=== PATIENT | female | born 1990 | race Caucasian/White ===

== ENCOUNTER 2025-03-31 15:04 | Emergency (ER) | payer OTHER, SELFPAY ==
[2025-03-31 15:06] VITALS: BP 147/76
[2025-03-31 15:20] LABS: Hematocrit 41.2 % (37.0-47.0); Hemoglobin 14.4 g/dL (12.0-16.0); Mean Corp Hgb Conc. 35.0 g/dL (33.0-37.0); Mean Corpuscular Volume 83.4 fL (81.0-99.0); Nucleated Red Blood Cells % 0 %; Platelet Count 201 10^3/uL (130-400); Red Cell Dist. Width 12.6 % (11.5-14.5)
[2025-03-31 15:46] LABS: ALT (SGPT) 29 U/L (0-35); AST (SGOT) 23 U/L (14-36); Albumin 4.4 g/dl (3.5-5.0); Alkaline Phosphatase 69 U/L (38-126); Blood Urea Nitrogen 12 mg/dl (7-17); Calcium 9.6 mg/dl (8.4-10.2); Carbon Dioxide 20 mmol/L (22-30); Chloride 108 mmol/L (98-107); Glucose 125 mg/dl (70-99); Lipase 129 U/L (23-300); Potassium 4.1 mmol/L (3.5-5.1); Sodium 137 mmol/L (135-145); Total Protein 6.9 g/dl (6.3-8.2); eGFR > 60.00
[2025-03-31 15:47] LABS: HCG, Serum Qualitative Screen Negative
--- NOTE | 2025-03-31 16:14 | EDRN ---
Brando VASQUEZ in room w/ pt at this time.
[2025-03-31 16:20] VITALS: BP 115/71; BMI 23.4
[2025-03-31] MEDS: NSS 1000 IV (16:24)
[2025-03-31] MEDS: ZOFRAN 4 MG IV (16:29)
[2025-03-31] MEDS: TORADOL 15 MG IV (16:29)
--- NOTE | 2025-03-31 16:47 | EDRN ---
Pt has urine cup ready for after US.
[2025-03-31 17:00] VITALS: BP 120/89
--- NOTE | 2025-03-31 17:35 | ED.GENMED ---
History of Present Illness
<Heidi Viera PA-C - Last Filed: 04/01/25 11:11>
General
Chief Complaint: Abdominal Pain
Source: patient
Exam Limitations: none
Time Seen by Provider: 03/31/25 16:04
Nursing documentation reviewed up to this point in time: agreed with
History of Present Illness
History of Present Illness:
Patient is a 34-year-old female who presents to the emergency department with acute onset right sided abdominal pain. She states symptoms started around 1/:30 PM and describes a sharp pain through her entire right side of her abdomen radiating
around to her right back. She reports associated nausea however has not had any episodes of vomiting. No fever or chills. No dysuria or obvious hematuria. No diarrhea or constipation. No clear postprandial nature to pain. No associated chest
pain or shortness of breath.
Patient was feeling well this morning and asymptomatic prior to onset of pain.
No history of abdominal surgeries.
Past History
<Heidi Viera PA-C - Last Filed: 04/01/25 11:11>
Past History
ED Past Medical History: None
Social History
Tobacco: Non-smoker
Personal: Single
Review of Systems
<Heidi Viera PA-C - Last Filed: 04/01/25 11:11>
Review of Systems
Allergies reviewed?: Yes
All Other Systems: ROS reviewed and negative except as documented in HPI and ROS
Phy Exam
<Heidi Viera PA-C - Last Filed: 04/01/25 11:11>
Physical Exam
Physical Exam:
Vitals: Patient's vital signs are stable. Afebrile
General: Patient is moderately uncomfortable due to pain.
Skin: Warm and dry, no rashes or lesions
Head: Normocephalic, atraumatic
Eyes: Sclera nonicteric. EOMs intact. No nystagmus.
Throat: Protecting airway
Neck: Normal ROM, no cervical spine tenderness, no meningismus
Cardiac: Regular rate and rhythm, no murmurs.
Pulm: Normal respiratory effort. Lungs clear bilaterally
Abdomen: Abdomen soft. Reproducible tenderness in right lower quadrant and right mid abdomen. No focal tenderness in right upper quadrant with negative Carey sign. No CVA tenderness
Extremities: No evidence of cyanosis or edema.
Neuro: AAOx3. Grossly intact.
Psychiatric: Normal affect.
Course
<Heidi Viera PA-C - Last Filed: 04/01/25 11:11>
Orders/Labs/Results
Orders:
Orders
03/31/25 15:09
IV Insert/Care/Rem.- Treatment PRN
Test Result ONCE
03/31/25 15:14
Complete Blood Count/With Diff Urgent
Comprehensive Metabolic Panel Urgent
HCG, Serum Qualitative Screen Urgent
Comment: Notify provider if positive test present
Lipase Urgent
03/31/25 16:16
0.9% Sodium Chloride 1000 ml [Nss] 1,000 ml IV BOLUS
Ketorolac [Toradol] 15 mg IV NOW STA
Ondansetron Injectable [Zofran] 4 mg IV NOW STA
Pelvis & Transvaginal US [US Pelvis W Transvag Combined] Urgent
Comment:
Reason For Exam: RLQ pain, +nausea
US Renal With Bladder Urgent
Reason For Exam: RLQ pain radiating to back
03/31/25 18:12
Urinalysis Reflex To Culture Urgent
Date Specimen was Collected: 03/31/25
Time Specimen was Collected: 15:09
Urine Microscopic Reflex Cult Urgent
Urine Culture Urgent
SHIVAM Source: U
Specimen Description:
Date Specimen was Collected: 03/31/25
Time Specimen was Collected: 15:09
03/31/25 18:43
CT Abd/pelvis W Iv Cont Urgent
Comment:
Reason For Exam: RLQ pain
Abnormal Lab Results
03/31/25 03/31/25
15:14 18:12
MPV 11.1 H fL
(7.4-10.4)
Absolute Neuts (auto) 8.6 H 10^3/uL
(1.4-6.5)
Neutrophils % 80.0 H %
(42.2-75.2)
Lymphocytes % 17.3 L %
(20.5-51.1)
Chloride 108 H mmol/L
(98-107)
Carbon Dioxide 20 L mmol/L
(22-30)
Glucose 125 H mg/dl
(70-99)
Urine Ketones 2+ A
(Negative)
Ur Occult Blood Reflex 4+ A
(Negative)
Urine RBC 11-15 A /HPF
(0-2)
Urine WBC (Reflex) 16-20 A /HPF
(0-5)
Urine Bacteria (Reflex) Many A
(Negative)
Urine Albumin (Reflex) 2+ A
(Neg - Trace)
03/31/25 15:14
03/31/25 15:14
Vital Signs
Initial and Last Documented VS:
Initial Vital Signs
Temp Pulse Resp BP Pulse Ox
96.6 F L 98 18 147/76 100
03/31/25 15:06 03/31/25 15:06 03/31/25 15:06 03/31/25 15:06 03/31/25 15:06
Last Documented Vital Signs
Temp Pulse Resp BP Pulse Ox
96.6 F L 76 16 124/68 99
03/31/25 15:06 03/31/25 21:37 03/31/25 21:37 03/31/25 21:37 03/31/25 21:37
<Gagan Hardy PA-C - Last Filed: 04/01/25 00:00>
Orders/Labs/Results
Orders:
Orders
03/31/25 15:09
IV Insert/Care/Rem.- Treatment PRN
Test Result ONCE
03/31/25 15:14
Complete Blood Count/With Diff Urgent
Comprehensive Metabolic Panel Urgent
HCG, Serum Qualitative Screen Urgent
Comment: Notify provider if positive test present
Lipase Urgent
03/31/25 16:16
0.9% Sodium Chloride 1000 ml [Nss] 1,000 ml IV BOLUS
Ketorolac [Toradol] 15 mg IV NOW STA
Ondansetron Injectable [Zofran] 4 mg IV NOW STA
Pelvis & Transvaginal US [US Pelvis W Transvag Combined] Urgent
Comment:
Reason For Exam: RLQ pain, +nausea
US Renal With Bladder Urgent
Reason For Exam: RLQ pain radiating to back
03/31/25 18:12
Urinalysis Reflex To Culture Urgent
Date Specimen was Collected: 03/31/25
Time Specimen was Collected: 15:09
Urine Microscopic Reflex Cult Urgent
Urine Culture Urgent
SHIVAM Source: U
Specimen Description:
Date Specimen was Collected: 03/31/25
Time Specimen was Collected: 15:09
03/31/25 18:43
CT Abd/pelvis W Iv Cont Urgent
Comment:
Reason For Exam: RLQ pain
Abnormal Lab Results
03/31/25 03/31/25
15:14 18:12
MPV 11.1 H fL
(7.4-10.4)
Absolute Neuts (auto) 8.6 H 10^3/uL
(1.4-6.5)
Neutrophils % 80.0 H %
(42.2-75.2)
Lymphocytes % 17.3 L %
(20.5-51.1)
Chloride 108 H mmol/L
(98-107)
Carbon Dioxide 20 L mmol/L
(22-30)
Glucose 125 H mg/dl
(70-99)
Urine Ketones 2+ A
(Negative)
Ur Occult Blood Reflex 4+ A
(Negative)
Urine RBC 11-15 A /HPF
(0-2)
Urine WBC (Reflex) 16-20 A /HPF
(0-5)
Urine Bacteria (Reflex) Many A
(Negative)
Urine Albumin (Reflex) 2+ A
(Neg - Trace)
03/31/25 15:14
03/31/25 15:14
Vital Signs
Initial and Last Documented VS:
Initial Vital Signs
Temp Pulse Resp BP Pulse Ox
96.6 F L 98 18 147/76 100
03/31/25 15:06 03/31/25 15:06 03/31/25 15:06 03/31/25 15:06 03/31/25 15:06
Last Documented Vital Signs
Temp Pulse Resp BP Pulse Ox
96.6 F L 76 16 124/68 99
03/31/25 15:06 03/31/25 21:37 03/31/25 21:37 03/31/25 21:37 03/31/25 21:37
<Heidi Viera PA-C - Last Filed: 04/01/25 11:11>
MDM/Problems Addressed
Differential Diagnosis Includes:
Not limited to: Ovarian cyst, ovarian torsion, renal colic, pyelonephritis, appendicitis, biliary colic, acute cholecystitis,
MDM/Problems Addressed:
34-year-old female presenting with acute onset right sided abdominal pain. No associated fever, vomiting, dysuria. Not obviously postprandial nature or positional. Vitals and physical exam as above. Patient moderately uncomfortable appearing on
exam secondary to pain however nontoxic. Abdomen is soft with somewhat vague tenderness in right mid/lower abdomen although does have some degree of focal tenderness at McBurney's point. No rebound tenderness or guarding. No CVA tenderness.
Cardio/pulmonary assessment unremarkable.
Differential broad. Somewhat vague presentation considerations include ovarian etiology, kidney stone. Possible appendicitis. Less likely biliary etiology given location of pain.
ED plan: Labs, UA. Will start with ultrasound pelvis/kidneys to rule out emergent ovarian pathology, etc. Will treat pain, give IV fluids and reassess.
Update: Labs reviewed. No clinically significant abnormalities on CBC or CMP. Pelvis ultrasound shows no evidence of ovarian cyst or torsion. Renal ultrasound unremarkable. On reassessment�patient's pain is improved however she does still have
some reproducible tenderness in right lower quadrant. Clinical picture most consistent with renal colic however given focal tenderness McBurney's point�will obtain CT scan with IV contrast of abdomen/pelvis for further evaluation. Case signed out
to Cleve Hardy PA-C pending CT scan.
Chronic conditions affecting care:
N/A
Acute Exacerbation and/or Progression of Chronic Illness:
N/A
<Heidi Viera PA-C - Last Filed: 04/01/25 11:11>
*Radiology
Radiology exam reviewed: radiology read reviewed
*Pulse Oximetry
SaO2: 96
Oxygen Mode of Delivery: Room air
Patient hypoxic: no
*EKG
Interpreted by ED Provider?: NA
*Landscaping Specialist Interpretation
Rate: Landscaping Specialist- N/A
*Critical Care Note
Total Time (30-74mins, 75-104mins- exclusive of procedures): Not Applicable
<Gagan Hardy PA-C - Last Filed: 04/01/25 00:00>
Patient Management
Escalation/DeEscalation of care consider admission/obs:
Patient received in signout pending CT scan results. CT does not show any acute abnormality of the abdomen or pelvis. Her urine does have 16-20 WBCs. we discussed waiting for urine culture results versus initiating patient on antibiotic presently
and ultimately patient felt more comfortable starting the antibiotic now. Culture sent patient feeling better and would like to be discharged home
ED Attending Note
<Heidi Viera PA-C - Last Filed: 04/01/25 11:11>
-
Portions of this chart may have been created with voice recognition software.� Occasional wrong word or��sound alike� substitutions may have occurred due to the inherent limitations of voice recognition software.
Discharge Plan
Departure
Patient Disposition: Home (Routine Discharge)
Date of Disposition: 03/31/25
Time of Disposition: 21:28
Patient with high blood pressure during this ER visit?: Yes
Discharge Problem:
Abdominal pain, UTI (urinary tract infection)
Instructions: Abdominal Pain
Prescriptions:
New
sulfamethoxazole-trimethoprim [Bactrim DS] 800-160 mg tablet
1 tab PO BID 7 Days Qty: 14 0RF
No Action
acetaminophen 500 mg Tablet
1,000 mg PO DAILYPRN PRN (Reason: migraine)
semaglutide 1 mg/dose (4 mg/3 mL) Pen Injector
0.75 mg SC Q10D
Patient Comments:
[facility]
Referrals:
Yue Osullivan CRNP [Family Provider]
Interventions
Interventions:
*Risk Screen - Suicide Last Done: 03/31/25 16:20
*General Assessment Last Done: 03/31/25 16:20
*Neglect/Abuse Screening Last Done: 03/31/25 16:20
*ED- Fall Risk Assessment Last Done: 03/31/25 16:20
*ED COVID-19 Vaccine History Last Done: 03/31/25 16:20
*Nursing Disposition Last Done: 03/31/25 21:37
EU-Tovwfd-Pbzshclrbz Assessment Last Done: 03/31/25 16:20
Discharge Date and Time
Discharge Date/Time: 03/31/25 21:37
Print Language: KOREAN
[2025-03-31 18:16] VITALS: BP 110/71
[2025-03-31 18:33] LABS: Urine Character Clear (Clear)
[2025-03-31 19:06] LABS: Urine White Cell 16-20 /HPF (0-5)
[2025-03-31 21:37] VITALS: BP 124/68
== END 2025-03-31 21:37 | disposition home or self-care (01) ==
LOC: EMR 15:04
PROVIDERS: EMERGENCY PHYSICIAN Emergency Medicine; FAMILY PHYSICIAN Nurse Practitioner Primary Care
DX: R10.9 Unspecified abdominal pain (principal); N39.0 Urinary tract infection, site not specified
CPT/HCPCS: 99284; 96374; 96375; 96361; 74177; 76770; 76830; 76856; 80053; 81003; 81015; 83690; 84703; 85025; 87086; Q9967